=== PATIENT | female | born 1965 | race Hispanic/Latino ===

== ENCOUNTER 2017-07-18 14:51 | Inpatient (IN) | payer MEDICAID ==
[2017-07-18] MEDS ORDERED: Oxycodone/Acetaminophen 5/325 mg Tab PO STA (16:17)
[2017-07-18] MEDS ORDERED: Oxycodone/Acetaminophen 5/325 mg Tab ONE (16:31)
--- NOTE | 2017-07-18 16:47 | C.PDOC ---
History Of Present Illness 51 y/o female presents to ED c/o chronic joint pain. Pt states she has history of cervical disc surgery due to rheumatoid arthritis. Pt has not followed up with chronic pain specialist yet. Notes taking occasional Motrin and Percocet that is not prescribed to her. Denies any other complaints. Time Seen by Provider: 07/18/17 15:21 Chief Complaint (Nursing): Pain, Chronic History Per: Patient History/Exam Limitations: no limitations Onset/Duration Of Symptoms: Days Current Symptoms Are (Timing): Still Present Recent travel outside of the [place]: No Additional History Per: Patient Past Medical History Reviewed: Historical Data, Nursing Documentation, Vital Signs - Medical History PMH: Arthritis Family History: States: Unknown Family Hx - Social History Hx Alcohol Use: No Hx Substance Use: No - Immunization History Hx Tetanus Toxoid Vaccination: No Hx Influenza Vaccination: No Hx Pneumococcal Vaccination: No Review Of Systems Except As Marked, All Systems Reviewed And Found Negative. Constitutional: Positive for: Other (chronic joint pain). Negative for: Fever, Chills Cardiovascular: Negative for: Chest Pain, Palpitations Respiratory: Negative for: Shortness of Breath Gastrointestinal: Negative for: Nausea, Vomiting, Abdominal Pain Physical Exam - Physical Exam Appears: Non-toxic, No Acute Distress, Other (central obesity) Skin: Normal Color, Warm, Dry Head: Atraumatic, Normacephalic Eye(s): bilateral: Normal Inspection Oral Mucosa: Moist Cardiovascular: Rhythm Regular, No Murmur Respiratory: Normal Breath Sounds, No Rales, No Rhonchi, No Wheezing Extremity: No Normal ROM (painful ROM to knees without significant effusion), Capillary Refill (<2 secs.), No Deformity, Other (upper and lower extremity wasting) Neurological/Psych: Oriented x3, Normal Speech, Normal Motor, Normal Sensation ED Course And Treatment - Laboratory Results Result Diagrams: 07/18/17 17:32 07/18/17 17:32 Lab Interpretation: Normal Progress Note: percocet 1 po Reevaluation Time: 18:44 Reassessment Condition: Improved - Physician Consult Information Outcome Of Conversation: 1899: d/w Dr. Diaz and Medicine eduard Feldman to admit med/ Surg Obs Medical Decision Making Medical Decision Making: decompensated arhtritis, gait apraxia, morbid obesity, chronic pain Disposition Doctor Will See Patient In The: Hospital Counseled Patient/Family Regarding: Studies Performed, Diagnosis - Disposition Disposition: HOSPITALIZED Disposition Time: 18:45 Condition: GOOD Forms: [facility] ([place]) - Clinical Impression Clinical Impression: Gait apraxia, Chronic pain, Morbid obesity - Scribe Statement The provider has reviewed the documentation as recorded by the Eddieibnenita Rivera All medical record entries made by the Eddieibe were at my direction and personally dictated by me. I have reviewed the chart and agree that the record accurately reflects my personal performance of the history, physical exam, medical decision making, and the department course for this patient. I have also personally directed, reviewed, and agree with the discharge instructions and disposition.
[2017-07-18 17:35] LABS: BASO # 0.1 K/uL (0.0-0.2); BASO % 0.9 % (0.0-2.0); EOS # 0.1 K/uL (0.0-0.7); EOS % 1.4 % (0.0-4.0); HEMATOCRIT 40.6 % (34.0-47.0); LYMPH # 1.4 K/uL (1.0-4.3); LYMPH % 18.8 % (20.0-40.0); MEAN CELL VOLUME 81.3 fL (81.0-99.0); MEAN CORPUSCULAR HEMOGLOBIN 26.8 pg (27.0-31.0); MEAN CORPUSCULAR HGB CONC 32.9 g/dL (33.0-37.0); MEAN PLATELET VOLUME 7.2 fL (7.2-11.7); MONO # 0.3 K/uL (0.0-0.8); MONO % 4.5 % (0.0-10.0); NRBC % 0.4 % (0.0-2.0); RED CELL DISTRIBUTION WIDTH 16.1 % (11.5-14.5); WHITE BLOOD COUNT 7.6 K/uL (4.8-10.8)
--- NOTE | 2017-07-18 17:46 | RAD ---
PROCEDURE: CHEST RADIOGRAPH, 1 VIEW HISTORY: SOB COMPARISON: None available. FINDINGS: Right subclavian central venous catheter terminates at the cavoatrial junction. LUNGS: The lungs are well inflated and clear. PLEURA: No pneumothorax or pleural fluid seen. CARDIOVASCULAR: Normal. OSSEOUS STRUCTURES: No significant abnormalities. VISUALIZED UPPER ABDOMEN: Normal. OTHER FINDINGS: None. IMPRESSION: No acute findings.
[2017-07-18 17:49] LABS: INR 1.1
[2017-07-18 18:03] LABS: ALB/GLOB RATIO 1.2 (1.0-2.1); ALKALINE PHOSPHATASE 69 U/L (38-126); ALT/SGPT 28 U/L (9-52); AST/SGOT 16 U/L (14-36); BILIRUBIN,TOTAL 0.8 mg/dL (0.2-1.3); BLOOD UREA NITROGEN 20 mg/dL (7-17); CALCIUM 8.7 mg/dl (8.6-10.4); CARBON DIOXIDE 27 mmol/L (22-30); CHLORIDE 102 mmol/L (98-107); GFR AFRICAN-AMERICAN > 60; GLUCOSE,RANDOM 88 mg/dL (65-105); POTASSIUM 3.6 mmol/L (3.6-5.2); SODIUM 133 mmol/L (132-148); TOTAL PROTEIN 6.8 g/dL (6.3-8.3)
[2017-07-18 18:53] LABS: URINE COLOR Yellow (YELLOW)
[2017-07-18 18:54] LABS: RBC URINE 1 /hpf (0-3); TRANSITIONAL EPITHIAL < 1 /hpf (0-3); URINE BACTERIA RARE (<OCC); URINE BILIRUBIN NEGATIVE (NEGATIVE); URINE BLOOD NEGATIVE (NEGATIVE); URINE GLUCOSE (UA) NORMAL (Normal); URINE HYALINE CAST 0-2 /lpf (0-2); URINE KETONE NEGATIVE (NEGATIVE); URINE LEUKOCYTE ESTERASE NEG Leu/uL (Negative); URINE PROTEIN NEGATIVE (NEGATIVE); URINE UROBILINOGEN NORMAL mg/dL (0.2-1.0); WBC URINE 3 /hpf (0-5)
--- NOTE | 2017-07-18 23:41 | CP.PCM.HP ---
History of Present Illness - History of Present Illness History of Present Illness: CC: Rheumatoid Arthritis Pain HPI: 51 year old female presented to ED with complaint of worsening chronic Rheumatoid Arthritis-related joint pain in shoulders and knees. Patient is bed- bound and has not been able to stand or walk for the past two months due to the pain, which she rates as a 10/10. The pain is constant and is localized to the joints, with no radiation. Patient used to see a pain management doctor until he no longer accepted her insurance about 2 years ago. This doctor would prescribe her Percocet and give her Cortisone shots, which she says helped her pain. The Ibuprofen she takes now for the pain is not as effective. Patient also complains of a rash for about 1 month present throughout her body, which she says is very itchy. No one else in the family has the rash. Patient complains of weakness, headache, constipation, knee swelling, and back pain. Patient denies fever, chills, chest pain, palpations, nausea, vomiting, diarrhea , hematochezia, leg pain, weight gain. PMH: Rheumatoid Arthritis, Brain Cancer 15 years ago, now in remission PSH: Surgery for Brain Cancer Family History: Father had CA, mother had CVA and lung cancer, sister has breast cancer Medications: Ibuprofen 800 mg BID Allergies: NKDA Social History: 35 pack year history, denies alcohol and drug use; lives at home with , who is her primary caregiver, and daughter Present on Admission - Present on Admission Any Indicators Present on Admission: No History of DVT/PE: No History of Uncontrolled Diabetes: No Urinary Catheter: No Decubitus Ulcer Present: No Review of Systems - EENT Eyes: absent: Change in Vision - Cardiovascular Cardiovascular: absent: Chest Pain, Dyspnea, Leg Edema, Palpitations - Respiratory Respiratory: absent: Cough, Dyspnea, Wheezing, Stridor, Chest Congestion - Gastrointestinal Gastrointestinal: Constipation. absent: Abdominal Pain, Diarrhea, Nausea, Vomiting - Genitourinary Genitourinary: absent: Difficulty Urinating - Musculoskeletal Musculoskeletal: Arthralgias, Joint Swelling, Limited Range of Motion, Stiffness - Integumentary Integumentary: Pruritus, Rash - Neurological Neurological: absent: Dizziness - Hematologic/Lymphatic Hematologic: absent: Easy Bleeding, Easy Bruising Past Patient History - Past Social History Smoking Status: Heavy Smoker > 10 Cigarettes Daily - MUSCULOSKELETAL/RHEUMATOLOGICAL Hx Arthritis: Yes - PSYCHIATRIC Hx Substance Use: No - SURGICAL HISTORY Hx Surgeries: Yes Other/Comment: brain surgery (tumor) - ANESTHESIA Hx Anesthesia: Yes Hx Anesthesia Reactions: No Hx Malignant Hyperthermia: No Meds Allergies/Adverse Reactions: Allergies Allergy/AdvReac Type Severity Reaction Status Date / Time No Known Allergies Allergy Unverified 01/14/13 09:29 Physical Exam - Constitutional Appears: Chronically Ill - Head Exam Head Exam: ATRAUMATIC, NORMAL INSPECTION, NORMOCEPHALIC - Eye Exam Eye Exam: EOMI, Normal appearance - ENT Exam ENT Exam: Mucous Membranes Dry - Respiratory Exam Respiratory Exam: Clear to Auscultation Bilateral, NORMAL BREATHING PATTERN. absent: Rales, Rhonchi, Wheezes, Respiratory Distress, Stridor - Cardiovascular Exam Cardiovascular Exam: REGULAR RHYTHM, +S1, +S2 - GI/Abdominal Exam GI & Abdominal Exam: Normal Bowel Sounds, Soft. absent: Tenderness - Extremities Exam Extremities exam: Negative for: pedal edema Additional comments: petechial rash on feet and exoriations on LE - Neurological Exam Neurological exam: Alert, Oriented x3 - Psychiatric Exam Psychiatric exam: Normal Affect, Normal Mood - Skin Skin Exam: Abrasion, Erythema, Petechiae, Rash, Warm Additional comments: petechiae on feet, excoriations and rash on LE and shoulders and arms fungal type rash on feet, under armpits, and in groin Results - Vital Signs Recent Vital Signs: Last Vital Signs Temp 97.9 F 07/18/17 20:59 Pulse 74 07/18/17 20:59 Resp 18 07/18/17 20:59 BP 107/72 07/18/17 20:59 Pulse Ox 98 07/18/17 20:59 - Labs Result Diagrams: 07/18/17 17:32 07/18/17 17:32 Labs: Laboratory Results - last 24 hr 07/18/17 07/18/17 07/18/17 16:55 17:32 17:32 WBC 7.6 RBC 4.99 Hgb 13.4 Hct 40.6 MCV 81.3 MCH 26.8 L MCHC 32.9 L RDW 16.1 H Plt Count 265 MPV 7.2 Neut % (Auto) 74.4 Lymph % (Auto) 18.8 L Armstrong % (Auto) 4.5 Eos % (Auto) 1.4 Baso % (Auto) 0.9 Neut # 5.7 Lymph # 1.4 Armstrong # 0.3 Eos # 0.1 Baso # 0.1 PT 12.6 H INR 1.1 APTT 33 Sodium Potassium Chloride Carbon Dioxide Anion Gap BUN Creatinine Est GFR ( Amer) Est GFR (Non-Af Amer) Random Glucose Calcium Total Bilirubin AST ALT Alkaline Phosphatase NT-Pro-B Natriuret Pep Total Protein Albumin Globulin Albumin/Globulin Ratio Urine Color Yellow Urine Clarity Clear Urine pH 5.0 Ur Specific [place] 1.029 Urine Protein Negative Urine Glucose (UA) Normal Urine Ketones Negative Urine Blood Negative Urine Nitrate Negative Urine Bilirubin Negative Urine Urobilinogen Normal Ur Leukocyte Esterase Neg Urine WBC (Auto) 3 Urine RBC (Auto) 1 Ur Squamous Epith Cells 3 Ur Transition Epith Cell < 1 Urine Bacteria Rare Hyaline Casts 0-2 Urine HCG, Qual Negative Urine Opiates Screen Urine Methadone Screen Ur Barbiturates Screen Ur Phencyclidine Scrn Ur Amphetamines Screen U Benzodiazepines Scrn U Oth Cocaine Metabols U Cannabinoids Screen 07/18/17 07/18/17 17:32 18:35 WBC RBC Hgb Hct MCV MCH MCHC RDW Plt Count MPV Neut % (Auto) Lymph % (Auto) Armstrong % (Auto) Eos % (Auto) Baso % (Auto) Neut # Lymph # Armstrong # Eos # Baso # PT INR APTT Sodium 133 Potassium 3.6 Chloride 102 Carbon Dioxide 27 Anion Gap 8 L BUN 20 H Creatinine 0.6 L Est GFR ( Amer) > 60 Est GFR (Non-Af Amer) > 60 Random Glucose 88 Calcium 8.7 Total Bilirubin 0.8 AST 16 ALT 28 Alkaline Phosphatase 69 NT-Pro-B Natriuret Pep 129 Total Protein 6.8 Albumin 3.8 Globulin 3.1 Albumin/Globulin Ratio 1.2 Urine Color Urine Clarity Urine pH Ur Specific [place] Urine Protein Urine Glucose (UA) Urine Ketones Urine Blood Urine Nitrate Urine Bilirubin Urine Urobilinogen Ur Leukocyte Esterase Urine WBC (Auto) Urine RBC (Auto) Ur Squamous Epith Cells Ur Transition Epith Cell Urine Bacteria Hyaline Casts Urine HCG, Qual Urine Opiates Screen Positive H Urine Methadone Screen Negative Ur Barbiturates Screen Negative Ur Phencyclidine Scrn Negative Ur Amphetamines Screen Negative U Benzodiazepines Scrn Negative U Oth Cocaine Metabols Negative U Cannabinoids Screen Positive H Assessment & Plan - Assessment and Plan (Free Text) Assessment: Rheumatoid Arthritis Toradol 10mg IVP q8h SoluMedrol 125mg one dose Fungal Rash Diflucan 150mg po daily Prophylaxis DVT: SCDs GI: Pepcid 20mg daily
[2017-07-19 04:22] LABS: BASO % 0.3 % (0.0-2.0); EOS % 0.4 % (0.0-4.0); HEMATOCRIT 41.3 % (34.0-47.0); LYMPH # 0.8 K/uL (1.0-4.3); LYMPH % 13.7 % (20.0-40.0); MEAN CELL VOLUME 81.5 fL (81.0-99.0); MEAN CORPUSCULAR HGB CONC 33.1 g/dL (33.0-37.0); MEAN PLATELET VOLUME 7.3 fL (7.2-11.7); MONO # 0.1 K/uL (0.0-0.8); MONO % 1.7 % (0.0-10.0); NRBC % 0.1 % (0.0-2.0); RED CELL DISTRIBUTION WIDTH 16.1 % (11.5-14.5); WHITE BLOOD COUNT 5.7 K/uL (4.8-10.8)
[2017-07-19 04:53] LABS: ALB/GLOB RATIO 1.2 (1.0-2.1); ALKALINE PHOSPHATASE 69 U/L (38-126); ALT/SGPT 22 U/L (9-52); AST/SGOT 9 U/L (14-36); BILIRUBIN,TOTAL 0.8 mg/dL (0.2-1.3); BLOOD UREA NITROGEN 21 mg/dL (7-17); CALCIUM 8.1 mg/dl (8.6-10.4); CARBON DIOXIDE 25 mmol/L (22-30); CHLORIDE 102 mmol/L (98-107); GFR AFRICAN-AMERICAN > 60; GLUCOSE,RANDOM 132 mg/dL (65-105); MAGNESIUM 1.9 mg/dL (1.6-2.3); PHOSPHOROUS 4.1 mg/dL (2.5-4.5); POTASSIUM 4.3 mmol/L (3.6-5.2); SODIUM 142 mmol/L (132-148); TOTAL PROTEIN 6.9 g/dL (6.3-8.3)
[2017-07-19] MEDS: Enoxaparin 40 mg Syringe SC SCH (11:13)
--- NOTE | 2017-07-19 14:53 | CP.PCM.PN ---
Subjective - Date & Time of Evaluation Date of Evaluation: 07/19/17 Time of Evaluation: 09:30 - Subjective Subjective: Medicine Note ( PGY1)-----> Dr. Porter's service Patient was seen and examined at bedside in the ED. Patient states that she has been moderately immobile with sever pain in her joints. Patient was last seen by pain management two year ago and unable to go follow up with physical therapy due to lose of insurance. Patient admits to 8/10 knee pain, joint pain and back pain but denies fever, chills, nausea, vomiting, chest pain, palpitations and SOB. Patient is tolerating diet. Objective - Vital Signs/Intake and Output Vital Signs (last 24 hours): Temp Pulse Resp BP Pulse Ox 98.8 F 90 20 143/63 97 07/19/17 06:46 07/19/17 13:45 07/19/17 13:45 07/19/17 13:45 07/19/17 13:45 - Medications Medications: Current Medications Enoxaparin Sodium (Lovenox) [address] [facility] Last Admin: 07/19/17 11:13 Dose: 40 mg Famotidine (Pepcid) [address] [facility] Last Admin: 07/19/17 11:09 Dose: 20 mg Fluconazole (Diflucan) [address] [facility] Last Admin: 07/19/17 11:09 Dose: 150 mg Ketorolac Tromethamine (Toradol) [address] [facility] Last Admin: 07/19/17 13:42 Dose: 10 mg - Labs Labs: 07/19/17 04:19 07/19/17 04:19 PT 12.6 SECONDS (9.7-12.2) H 07/18/17 17:32 INR 1.1 07/18/17 17:32 APTT 33 SECONDS (21-34) 07/18/17 17:32 - Constitutional Appears: No Acute Distress - Eye Exam Eye Exam: EOMI - ENT Exam ENT Exam: Mucous Membranes Moist - Respiratory Exam Respiratory Exam: Clear to Ausculation Bilateral, NORMAL BREATHING PATTERN - Cardiovascular Exam Cardiovascular Exam: REGULAR RHYTHM, +S1, +S2 - GI/Abdominal Exam GI & Abdominal Exam: Soft, Normal Bowel Sounds. absent: Tenderness - Extremities Exam Extremities Exam: absent: Pedal Edema Additional comments: Bilateral contraction at the knee level Diffuse scarring on the legs Bilateral LE stiffness and joint pain - Neurological Exam Neurological Exam: Alert, Awake, Oriented x3 - Psychiatric Exam Psychiatric exam: Normal Affect - Skin Skin Exam: Normal Color Assessment and Plan (1) Chronic pain Assessment & Plan: Secondary to severe chronic Rheumatoid Arthritis-related joint pain in shoulders and knees Management/Medication: * Toradol 10mg IV Q8H PRN Status: Acute (2) History of brain cancer Assessment & Plan: Remission Status: Acute (3) Fungal rash of trunk Assessment & Plan: Diflucan 150mg po daily Status: Acute (4) Prophylactic measure Assessment & Plan: DVT: SCDs GI: Pepcid 20mg daily PT and OT All plans and management discussed with Dr. porter Status: Acute
--- NOTE | 2017-07-19 21:49 | CARD ---
APPROVED REPORT EKG Measurement Heart [id number] <Conclusion> Normal sinus rhythm Septal infarct, age undetermined T wave abnormality, consider anterolateral ischemia Abnormal ECG
[2017-07-19] MEDS ORDERED: Tramadol 25 mg PO ONE (22:02)
[2017-07-20 08:19] LABS: BASO % 0.7 % (0.0-2.0); EOS % 0.1 % (0.0-4.0); HEMATOCRIT 37.2 % (34.0-47.0); LYMPH # 2.2 K/uL (1.0-4.3); LYMPH % 33.7 % (20.0-40.0); MEAN CELL VOLUME 82.1 fL (81.0-99.0); MEAN CORPUSCULAR HEMOGLOBIN 26.9 pg (27.0-31.0); MEAN CORPUSCULAR HGB CONC 32.8 g/dL (33.0-37.0); MEAN PLATELET VOLUME 7.7 fL (7.2-11.7); MONO # 0.4 K/uL (0.0-0.8); MONO % 6.8 % (0.0-10.0); NRBC % 0.3 % (0.0-2.0); WHITE BLOOD COUNT 6.6 K/uL (4.8-10.8)
[2017-07-20 08:25] LABS: ALB/GLOB RATIO 1.2 (1.0-2.1); ALKALINE PHOSPHATASE 53 U/L (38-126); ALT/SGPT 26 U/L (9-52); AST/SGOT 12 U/L (14-36); BILIRUBIN,TOTAL 0.7 mg/dL (0.2-1.3); BLOOD UREA NITROGEN 21 mg/dL (7-17); CALCIUM 8.3 mg/dl (8.6-10.4); CARBON DIOXIDE 29 mmol/L (22-30); CHLORIDE 106 mmol/L (98-107); GFR AFRICAN-AMERICAN > 60; GLUCOSE,RANDOM 117 mg/dL (65-105); MAGNESIUM 2.1 mg/dL (1.6-2.3); PHOSPHOROUS 3.2 mg/dL (2.5-4.5); POTASSIUM 3.7 mmol/L (3.6-5.2); SODIUM 141 mmol/L (132-148); TOTAL PROTEIN 6.4 g/dL (6.3-8.3)
[2017-07-20] MEDS: Enoxaparin 40 mg Syringe SC SCH (10:20)
--- NOTE | 2017-07-20 18:55 | CP.PCM.PN ---
Subjective - Date & Time of Evaluation Date of Evaluation: 07/20/17 Time of Evaluation: 07:40 - Subjective Subjective: Medicine Note ( PGY1)-----> Dr. Porter's service Patient was seen and examined at bedside. Patient's was at bedside. Patient states that she is doing well but with pain in knee joints and but denies fever, chills, nausea, vomiting, chest pain, palpitations and SOB. Patient is tolerating diet. Objective - Vital Signs/Intake and Output Vital Signs (last 24 hours): Temp Pulse Resp BP Pulse Ox 97.9 F 58 L 20 136/84 97 07/20/17 15:00 07/20/17 15:00 07/20/17 15:00 07/20/17 15:00 07/20/17 15:00 Intake and Output: 07/20/17 07/20/17 06:59 18:59 Intake Total 440 600 Balance 440 600 - Medications Medications: Current Medications Enoxaparin Sodium (Lovenox) 40 mg SC DAILY [facility] Last Admin: 07/20/17 10:20 Dose: 40 mg Famotidine (Pepcid) 20 mg PO DAILY [facility] Last Admin: 07/20/17 10:20 Dose: 20 mg Fluconazole (Diflucan) 150 mg PO DAILY [facility] Last Admin: 07/20/17 10:20 Dose: 150 mg Ketorolac Tromethamine (Toradol) 10 mg IVP Q8 [facility] Last Admin: 07/20/17 14:18 Dose: 10 mg - Labs Labs: 07/20/17 07:54 07/20/17 07:54 PT 12.6 SECONDS (9.7-12.2) H 07/18/17 17:32 INR 1.1 07/18/17 17:32 APTT 33 SECONDS (21-34) 07/18/17 17:32 Assessment and Plan (1) Chronic pain Assessment & Plan: Secondary to severe chronic Rheumatoid Arthritis-related joint pain in shoulders and knees Management/Medication: * Toradol 10mg IV Q8H PRN * PT/OT Status: Acute (2) History of brain cancer Assessment & Plan: Remission Status: Acute (3) Rash Assessment & Plan: trunk, right upper shoulder and bilateral UE AND LE * Vitamin A & D ointment Status: Acute (4) Prophylactic measure Assessment & Plan: DVT: SCDs GI: Pepcid 20mg daily PT and OT All plans and management discussed with Dr. porter Status: Acute
[2017-07-20] MEDS: Vitamins A & D Oint UD Foilpak TOP SCH (21:01)
[2017-07-21] MEDS: Vitamins A & D Oint UD Foilpak TOP SCH ×6 (01:22→21:27)
--- NOTE | 2017-07-21 06:44 | CP.PCM.PN ---
Subjective - Date & Time of Evaluation Date of Evaluation: 07/21/17 Time of Evaluation: 06:42 - Subjective Subjective: Progress note Patient seen and examined at bedside. No acute events overnight. Patient denies fever, chills, nausea, vomiting, abdominal pain. Patient admits to arthritic pain in knees. Objective - Vital Signs/Intake and Output Vital Signs (last 24 hours): Temp Pulse Resp BP Pulse Ox 97.8 F 62 20 135/83 96 07/21/17 00:23 07/21/17 00:23 07/21/17 00:23 07/21/17 00:23 07/21/17 00:23 Intake and Output: 07/20/17 07/21/17 18:59 06:59 Intake Total 600 Balance 600 - Medications Medications: Current Medications Enoxaparin Sodium (Lovenox) 40 mg SC DAILY [facility] Last Admin: 07/20/17 10:20 Dose: 40 mg Famotidine (Pepcid) 20 mg PO DAILY [facility] Last Admin: 07/20/17 10:20 Dose: 20 mg Ketorolac Tromethamine (Toradol) 10 mg IVP Q8 [facility] Last Admin: 07/21/17 06:25 Dose: 10 mg Vitamin A (Vitamin A & D Oint Ud Foilpak) 0.5 ea TOP Q4 [facility] Last Admin: 07/21/17 04:29 Dose: 0.5 ea - Labs Labs: 07/20/17 07:54 07/20/17 07:54 PT 12.6 SECONDS (9.7-12.2) H 07/18/17 17:32 INR 1.1 07/18/17 17:32 APTT 33 SECONDS (21-34) 07/18/17 17:32 - Constitutional Appears: Non-toxic - Head Exam Head Exam: NORMAL INSPECTION - Eye Exam Eye Exam: EOMI, Normal appearance - ENT Exam ENT Exam: Mucous Membranes Moist - Respiratory Exam Respiratory Exam: NORMAL BREATHING PATTERN. absent: Accessory Muscle Use, Respiratory Distress - Cardiovascular Exam Cardiovascular Exam: REGULAR RHYTHM, +S1, +S2 - Extremities Exam Additional comments: Bilateral contraction at Patient's knees. Diffuse scarring noted on the legs Bilateral LE stiffness and joint pain - Neurological Exam Neurological Exam: Alert, Awake - Psychiatric Exam Psychiatric exam: Normal Affect, Normal Mood - Skin Skin Exam: Dry, Intact Assessment and Plan - Assessment and Plan (Free Text) Assessment: (1) Chronic pain Assessment & Plan: Secondary to severe chronic Rheumatoid Arthritis-related joint pain in shoulders and knees Management/Medication: * Toradol 10mg IV Q8H PRN * PT/OT Status: Acute (2) History of brain cancer Assessment & Plan: Remission Status: Acute (3) Rash Assessment & Plan: trunk, right upper shoulder and bilateral UE AND LE * Vitamin A & D ointment Status: Acute (4) Prophylaxis Assessment & Plan: DVT: SCDs GI: Pepcid 20mg daily PT and OT All plans and management discussed with Dr. Diaz Status: Acute
[2017-07-21 07:48] LABS: BASO # 0.1 K/uL (0.0-0.2); BASO % 0.9 % (0.0-2.0); EOS # 0.1 K/uL (0.0-0.7); EOS % 1.1 % (0.0-4.0); HEMATOCRIT 38.1 % (34.0-47.0); LYMPH # 2.5 K/uL (1.0-4.3); LYMPH % 40.9 % (20.0-40.0); MEAN CELL VOLUME 81.4 fL (81.0-99.0); MEAN CORPUSCULAR HEMOGLOBIN 27.3 pg (27.0-31.0); MEAN CORPUSCULAR HGB CONC 33.5 g/dL (33.0-37.0); MEAN PLATELET VOLUME 7.8 fL (7.2-11.7); MONO # 0.4 K/uL (0.0-0.8); MONO % 5.9 % (0.0-10.0); NRBC % 0.1 % (0.0-2.0); WHITE BLOOD COUNT 6.1 K/uL (4.8-10.8)
[2017-07-21 08:12] LABS: ALB/GLOB RATIO 0.9 (1.0-2.1); ALKALINE PHOSPHATASE 60 U/L (38-126); ALT/SGPT 24 U/L (9-52); AST/SGOT 12 U/L (14-36); BILIRUBIN,TOTAL 0.3 mg/dL (0.2-1.3); BLOOD UREA NITROGEN 15 mg/dL (7-17); CALCIUM 8.1 mg/dl (8.6-10.4); CARBON DIOXIDE 30 mmol/L (22-30); CHLORIDE 105 mmol/L (98-107); GFR AFRICAN-AMERICAN > 60; GLUCOSE,RANDOM 103 mg/dL (65-105); MAGNESIUM 1.9 mg/dL (1.6-2.3); PHOSPHOROUS 3.6 mg/dL (2.5-4.5); POTASSIUM 3.4 mmol/L (3.6-5.2); SODIUM 141 mmol/L (132-148); TOTAL PROTEIN 6.9 g/dL (6.3-8.3)
[2017-07-21] MEDS: Enoxaparin 40 mg Syringe SC SCH (10:56)
[2017-07-21] MEDS ORDERED: Potassium Chloride 20 mEq ER Tab PO ONE (19:17)
[2017-07-22] MEDS: Vitamins A & D Oint UD Foilpak TOP SCH ×6 (00:07→20:00)
--- NOTE | 2017-07-22 06:27 | CP.PCM.PN ---
Subjective - Date & Time of Evaluation Date of Evaluation: 07/22/17 Time of Evaluation: 06:25 - Subjective Subjective: Progress Note for Dr. Diaz Patient seen and examined at bedside. Patient has pain, but no other complaints. Patient denies fever, chills, nausea, vomiting, abdominal pain. Objective - Vital Signs/Intake and Output Vital Signs (last 24 hours): Temp Pulse Resp BP Pulse Ox 98.1 F 58 L 16 108/73 98 07/22/17 00:00 07/22/17 00:00 07/22/17 00:00 07/22/17 00:00 07/22/17 00:00 - Medications Medications: Current Medications Enoxaparin Sodium (Lovenox) 40 mg SC DAILY [facility] Last Admin: 07/21/17 10:56 Dose: 40 mg Famotidine (Pepcid) 20 mg PO DAILY [facility] Last Admin: 07/21/17 10:58 Dose: 20 mg Ketorolac Tromethamine (Toradol) 10 mg IVP Q8 [facility] Last Admin: 07/22/17 05:05 Dose: 10 mg Prednisone (Prednisone Tab) 40 mg PO DAILY [facility] Vitamin A (Vitamin A & D Oint Ud Foilpak) 0.5 ea TOP Q4 [facility] Last Admin: 07/22/17 05:11 Dose: Not Given - Labs Labs: 07/21/17 07:24 07/21/17 07:24 PT 12.6 SECONDS (9.7-12.2) H 07/18/17 17:32 INR 1.1 07/18/17 17:32 APTT 33 SECONDS (21-34) 07/18/17 17:32 - Extremities Exam Additional comments: Bilateral contraction at Patient's knees. Diffuse scarring noted on the legs Bilateral LE stiffness and joint pain - Additional Findings Additional findings: - Constitutional Appears: Non-toxic - Head Exam Head Exam: NORMAL INSPECTION - Eye Exam Eye Exam: EOMI, Normal appearance - ENT Exam ENT Exam: Mucous Membranes Moist - Respiratory Exam Respiratory Exam: NORMAL BREATHING PATTERN. absent: Accessory Muscle Use, Respiratory Distress - Cardiovascular Exam Cardiovascular Exam: REGULAR RHYTHM, +S1, +S2 - Neurological Exam Neurological Exam: Alert, Awake - Psychiatric Exam Psychiatric exam: Normal Affect, Normal Mood - Skin Skin Exam: Dry, Intact Assessment and Plan - Assessment and Plan (Free Text) Assessment: (1) Chronic pain Assessment & Plan: Secondary to severe chronic Rheumatoid Arthritis-related joint pain in shoulders and knees Management/Medication: * Toradol 10mg IV Q8H PRN * PT/OT Status: Acute (2) History of brain cancer Assessment & Plan: Remission Status: Acute (3) Rash Assessment & Plan: trunk, right upper shoulder and bilateral UE AND LE * Vitamin A & D ointment Status: Acute (4) Prophylaxis Assessment & Plan: DVT: SCDs GI: Pepcid 20mg daily PT and OT All plans and management discussed with Dr. Diaz Status: Acute Cheyenne Garcia DO PGY1
[2017-07-22 08:26] LABS: BASO # 0.1 K/uL (0.0-0.2); BASO % 0.9 % (0.0-2.0); EOS # 0.1 K/uL (0.0-0.7); EOS % 1.4 % (0.0-4.0); HEMATOCRIT 38.8 % (34.0-47.0); LYMPH # 2.2 K/uL (1.0-4.3); LYMPH % 35.9 % (20.0-40.0); MEAN CELL VOLUME 81.3 fL (81.0-99.0); MEAN CORPUSCULAR HEMOGLOBIN 27.2 pg (27.0-31.0); MEAN CORPUSCULAR HGB CONC 33.5 g/dL (33.0-37.0); MEAN PLATELET VOLUME 7.3 fL (7.2-11.7); MONO # 0.3 K/uL (0.0-0.8); MONO % 5.2 % (0.0-10.0); NRBC % 0.1 % (0.0-2.0); RED CELL DISTRIBUTION WIDTH 16.5 % (11.5-14.5); WHITE BLOOD COUNT 6.1 K/uL (4.8-10.8)
[2017-07-22 09:10] LABS: ALB/GLOB RATIO 0.9 (1.0-2.1); ALKALINE PHOSPHATASE 64 U/L (38-126); ALT/SGPT 26 U/L (9-52); AST/SGOT 11 U/L (14-36); BILIRUBIN,TOTAL 0.4 mg/dL (0.2-1.3); BLOOD UREA NITROGEN 16 mg/dL (7-17); CALCIUM 8.2 mg/dl (8.6-10.4); CARBON DIOXIDE 29 mmol/L (22-30); CHLORIDE 105 mmol/L (98-107); GFR AFRICAN-AMERICAN > 60; GLUCOSE,RANDOM 99 mg/dL (65-105); PHOSPHOROUS 3.9 mg/dL (2.5-4.5); POTASSIUM 4.4 mmol/L (3.6-5.2); SODIUM 140 mmol/L (132-148); TOTAL PROTEIN 6.7 g/dL (6.3-8.3)
[2017-07-22] MEDS: Enoxaparin 40 mg Syringe SC SCH (11:00)
--- NOTE | 2017-07-22 11:19 | RAD ---
PROCEDURE: Bilateral Knee Radiographs. HISTORY: chronic arthritis COMPARISON: Bilateral knees 10/18/2012. FINDINGS: BONES: No acute fracture or destructive bony lesion identified bilaterally. JOINTS: Late stage osteoarthritis is manifest by joint space narrowing, cortical sclerosis and limited osteophyte formation at the medial lateral femorotibial compartments as well as the patellofemoral articulation, worsened in the interval. SOFT TISSUES: Right Knee: Normal. Left Knee: Normal. JOINT EFFUSION: Right Knee: None. Left Knee: None. OTHER FINDINGS: None. IMPRESSION: Late stage bilateral osteoarthritis, tricompartmental.
--- NOTE | 2017-07-22 11:21 | RAD ---
PROCEDURE: Radiographs of both shoulders HISTORY: chronic arthritis COMPARISON: No prior. FINDINGS: BONES: No acute fracture or destructive bony lesion identified bilaterally. JOINTS: Moderate severe degenerative change in the bilateral acromioclavicular joints and are mild at the bilateral leak that glenohumeral joints. No subluxation or dislocation. SOFT TISSUES: Right shoulder: Grossly unremarkable. Right shoulder: Grossly unremarkable. OTHER FINDINGS: None. IMPRESSION: Moderate degenerative joint disease bilateral shoulders without fracture or dislocation.
[2017-07-23] MEDS: Vitamins A & D Oint UD Foilpak TOP SCH ×5 (06:14→20:55)
[2017-07-23 07:58] LABS: BASO % 0.5 % (0.0-2.0); EOS % 0.1 % (0.0-4.0); HEMATOCRIT 39.6 % (34.0-47.0); LYMPH % 29.5 % (20.0-40.0); MEAN CELL VOLUME 81.5 fL (81.0-99.0); MEAN CORPUSCULAR HEMOGLOBIN 26.9 pg (27.0-31.0); MEAN CORPUSCULAR HGB CONC 33.1 g/dL (33.0-37.0); MEAN PLATELET VOLUME 7.6 fL (7.2-11.7); MONO # 0.4 K/uL (0.0-0.8); MONO % 6.2 % (0.0-10.0); WHITE BLOOD COUNT 6.6 K/uL (4.8-10.8)
--- NOTE | 2017-07-23 08:34 | CP.PCM.CON ---
History of Present Illness - History of Present Illness History of Present Illness: Orthopedic consultation Dr. Escoto 51F with rheumatoid arthritis with B knee and shoulder involvement complains of severe knee pain and shoulder pain. She has been unable to ambulate for months, she is unsure exactly how long. Last visit to pain mgmt doctor was 2 years ago, when she was getting cortisone injections and PT. She does not have wheelchair. She is relatively bed bound. Patient says she came to ER to get steroid injections so she can walk again. Review of Systems - Review of Systems All systems: reviewed and no additional remarkable complaints except Past Patient History - Past Medical History & Family History Past Medical History?: Yes Past Family History: Reviewed and not pertinent - Past Social History Smoking Status: Heavy Smoker > 10 Cigarettes Daily - CARDIAC Hx Cardiac Disorders: No - PULMONARY Hx Respiratory Disorders: No - NEUROLOGICAL Hx Neurological Disorder: No - HEENT Hx HEENT Problems: No - RENAL Hx Chronic Kidney Disease: No - ENDOCRINE/METABOLIC Hx Endocrine Disorders: No - HEMATOLOGICAL/ONCOLOGICAL Hx Blood Disorders: No - INTEGUMENTARY Hx Dermatological Problems: No - MUSCULOSKELETAL/RHEUMATOLOGICAL Hx Arthritis: Yes (B/L SH; B/L KNEE) - GASTROINTESTINAL Hx Gastrointestinal Disorders: No - GENITOURINARY/GYNECOLOGICAL Hx Genitourinary Disorders: No - PSYCHIATRIC Hx Psychophysiologic Disorder: No Hx Substance Use: No - SURGICAL HISTORY Hx Surgeries: Yes Other/Comment: brain surgery (tumor) 17yrs ago - ANESTHESIA Hx Anesthesia: Yes Hx Anesthesia Reactions: No Hx Malignant Hyperthermia: No Meds Allergies/Adverse Reactions: Allergies Allergy/AdvReac Type Severity Reaction Status Date / Time No Known Allergies Allergy Unverified 01/14/13 09:29 - Medications Medications: Current Medications Enoxaparin Sodium (Lovenox) 40 mg SC DAILY [facility] Last Admin: 07/22/17 11:00 Dose: 40 mg Famotidine (Pepcid) 20 mg PO DAILY [facility] Last Admin: 07/22/17 11:00 Dose: 20 mg Ketorolac Tromethamine (Toradol) 10 mg IVP Q6 [facility] Last Admin: 07/23/17 06:14 Dose: Not Given Prednisone (Prednisone Tab) 40 mg PO DAILY [facility] Last Admin: 07/22/17 11:00 Dose: 40 mg Vitamin A (Vitamin A & D Oint Ud Foilpak) 0.5 ea TOP Q4 [facility] Last Admin: 07/23/17 08:09 Dose: 0.5 ea Physical Exam - Constitutional Appears: Well, No Acute Distress Additional comments: lying in bed, pillows under knees due to contractions - Head Exam Head Exam: ATRAUMATIC - Respiratory Exam Respiratory Exam: NORMAL BREATHING PATTERN - Cardiovascular Exam Additional comments: +radial pulses - Expanded Upper Extremities Exam Left Shoulder exam: tenderness (generalized tenderness, AROM limited to 90 degrees, but passively to approx 120, complains of pain) Neuro motor exam: finger 2-5 abduction intact, thumb abduction, thumb IP flexion intact, thumb opposition intact, wrist extension intact Neurosensory exam: median nerve intact, radial nerve intact, ulnar nerve intact Vascular exam: radial pulse Right Shoulder exam: tenderness (generalized tenderness, AROM limited to 90 degrees, but passively to approx 120, complains of pain) Neuro motor exam: finger 2-5 abduction intact, thumb abduction, thumb IP flexion intact, thumb opposition intact, wrist extension intact Neurosensory exam: median nerve intact, radial nerve intact, ulnar nerve intact Vascular exam: radial pulse - Expanded Lower Extremities Exam Left Knee exam: crepitus, tenderness (BLE contractures. ROM of 70-100 degrees approx , calves soft NT neg homans +ROM ankle/toes, sensation itnact) - Neurological Exam Neurological exam: Alert, Oriented x3 - Psychiatric Exam Psychiatric exam: Normal Affect, Normal Mood - Skin Skin Exam: Dry, Intact, Normal Color, Warm Results - Vital Signs Recent Vital Signs: Last Vital Signs Temp 97.7 F 07/23/17 08:11 Pulse 62 07/23/17 08:11 Resp 20 07/23/17 08:11 BP 131/84 07/23/17 08:11 Pulse Ox 97 07/23/17 08:11 - Labs Result Diagrams: 07/23/17 07:46 07/23/17 07:46 Labs: Laboratory Results - last 24 hr 07/22/17 07/22/17 07/22/17 07:00 08:09 08:09 WBC 6.1 RBC 4.77 Hgb 13.0 Hct 38.8 MCV 81.3 MCH 27.2 MCHC 33.5 RDW 16.5 H Plt Count 237 MPV 7.3 Neut % (Auto) 56.6 Lymph % (Auto) 35.9 Stephenson % (Auto) 5.2 Eos % (Auto) 1.4 Baso % (Auto) 0.9 Neut # 3.5 Lymph # 2.2 Stephenson # 0.3 Eos # 0.1 Baso # 0.1 ESR 26 H Sodium 140 Potassium 4.4 Chloride 105 Carbon Dioxide 29 Anion Gap 11 BUN 16 Creatinine 0.5 L Est GFR ( Amer) > 60 Est GFR (Non-Af Amer) > 60 Random Glucose 99 Calcium 8.2 L Phosphorus 3.9 Magnesium 2.0 Total Bilirubin 0.4 AST 11 L ALT 26 Alkaline Phosphatase 64 C-React Prot High Sens 10.74 H Total Protein 6.7 Albumin 3.3 L Globulin 3.4 Albumin/Globulin Ratio 0.9 L 07/23/17 07:46 WBC 6.6 RBC 4.86 Hgb 13.1 Hct 39.6 MCV 81.5 MCH 26.9 L MCHC 33.1 RDW 16.0 H Plt Count 269 MPV 7.6 Neut % (Auto) 63.7 Lymph % (Auto) 29.5 Stephenson % (Auto) 6.2 Eos % (Auto) 0.1 Baso % (Auto) 0.5 Neut # 4.2 Lymph # 2.0 Stephenson # 0.4 Eos # 0.0 Baso # 0.0 ESR Sodium Potassium Chloride Carbon Dioxide Anion Gap BUN Creatinine Est GFR ( Amer) Est GFR (Non-Af Amer) Random Glucose Calcium Phosphorus Magnesium Total Bilirubin AST ALT Alkaline Phosphatase C-React Prot High Sens Total Protein Albumin Globulin Albumin/Globulin Ratio - Impressions Impression: Patient Name / ID : JUAN PABLO LINDSAY / [id number] Exam Date : 07/22/2017 08:16:19 ( Approved ) Study Comment : Sex / Age : F / 51Y Creator : Ilan Arreaga MD Dictator : Ilan Arreaga MD Director Of Strategic Sourcing : [employer] : Ilan Arreaga MD Approver2 : Report Date : 07/22/2017 11:15:15 My Comment : PROCEDURE: Radiographs of both shoulders HISTORY: chronic arthritis COMPARISON: No prior. FINDINGS: BONES: No acute fracture or destructive bony lesion identified bilaterally. JOINTS: Moderate severe degenerative change in the bilateral acromioclavicular joints and are mild at the bilateral leak that glenohumeral joints. No subluxation or dislocation. SOFT TISSUES: Right shoulder: Grossly unremarkable. Right shoulder: Grossly unremarkable. OTHER FINDINGS: None. IMPRESSION: Moderate degenerative joint disease bilateral shoulders without fracture or dislocation. Patient Name / ID : JUAN PABLO LINDSAY / [id number] Exam Date : 07/22/2017 07:59:27 ( Approved ) Study Comment : Sex / Age : F / 51Y Creator : Ilan Arreaga MD Dictator : Ilan Arreaga MD Director Of Strategic Sourcing : [employer] : Ilan Arreaga MD Approver2 : Report Date : 07/22/2017 11:13:18 My Comment : PROCEDURE: Bilateral Knee Radiographs. HISTORY: chronic arthritis COMPARISON: Bilateral knees 10/18/2012. FINDINGS: BONES: No acute fracture or destructive bony lesion identified bilaterally. JOINTS: Late stage osteoarthritis is manifest by joint space narrowing, cortical sclerosis and limited osteophyte formation at the medial lateral femorotibial compartments as well as the patellofemoral articulation, worsened in the interval. SOFT TISSUES: Right Knee: Normal. Left Knee: Normal. JOINT EFFUSION: Right Knee: None. Left Knee: None. OTHER FINDINGS: None. IMPRESSION: Late stage bilateral osteoarthritis, tricompartmental. Assessment & Plan (1) Rheumatoid arthritis Assessment and Plan: Patient will need extensive aggressive physical therapy to maximize ROM/ strength and functional abliity of BUE and BLE advised patient that steroid injection will not reverse her knee contractures, and that walking again is a goal but can not be guaranteed with this level of contractures and disability agreessive PT /OT for ROM and strengthening, wheelchair transfers recommend rehab placement recommend rheumatology consult, recommend pain management consult patient on PO steroids at this time d/w Dr. Esocto Status: Acute (2) Bilateral knee contractures Status: Acute (3) Knee pain, bilateral Status: Acute (4) Shoulder pain, bilateral Status: Acute (5) DJD of left shoulder Status: Acute (6) DJD of right shoulder Status: Acute (7) Degenerative joint disease of knee, right Status: Acute (8) Degenerative joint disease of knee, left Status: Acute Review of Systems - Review of Systems Constitutional: Negative for: Fever, HPI, A, Chills, Sweats, DS, Weakness, FA, Malaise, Other, FF, LEAL, IA, L, NS, SN, D[employer]ITAL [employer]OR, WG, WL, UN Respiratory: Negative for: Cough, Dry, Shortness of Breath, Hemoptysis, SOB with Exertion, Pleuritic Pain, Sputum, Wheezing Musculoskeletal: Positive for: Shoulder Pain, Leg Pain Neurological: Negative for: Weakness, Numbness, Incoordination, Change in Speech , Confusion, Seizures, Other - Medications/Allergies Allergies/Adverse Reactions: Allergies Allergy/AdvReac Type Severity Reaction Status Date / Time No Known Allergies Allergy Unverified 01/14/13 09:29 Medications: Current Medications Enoxaparin Sodium (Lovenox) 40 mg SC DAILY [facility] Last Admin: 07/23/17 09:16 Dose: 40 mg Famotidine (Pepcid) 20 mg PO DAILY [facility] Last Admin: 07/23/17 09:16 Dose: 20 mg Ketorolac Tromethamine (Toradol) 15 mg IVP Q6 PRN PRN Reason: Pain, moderate (4-7) Ketorolac Tromethamine (Toradol) 30 mg IVP Q6H PRN PRN Reason: Pain, severe (8-10) Last Admin: 07/23/17 11:40 Dose: 30 mg Prednisone (Prednisone Tab) 40 mg PO DAILY [facility] Last Admin: 07/23/17 09:16 Dose: 40 mg Vitamin A (Vitamin A & D Oint Ud Foilpak) 0.5 ea TOP Q4 [facility] Last Admin: 07/23/17 11:41 Dose: 0.5 ea
[2017-07-23 08:49] LABS: ALKALINE PHOSPHATASE 63 U/L (38-126); ALT/SGPT 23 U/L (9-52); AST/SGOT 12 U/L (14-36); BILIRUBIN,TOTAL 0.4 mg/dL (0.2-1.3); BLOOD UREA NITROGEN 19 mg/dL (7-17); CALCIUM 8.3 mg/dl (8.6-10.4); CARBON DIOXIDE 26 mmol/L (22-30); CHLORIDE 105 mmol/L (98-107); GFR AFRICAN-AMERICAN > 60; GLUCOSE,RANDOM 126 mg/dL (65-105); MAGNESIUM 2.1 mg/dL (1.6-2.3); PHOSPHOROUS 3.3 mg/dL (2.5-4.5); POTASSIUM 3.9 mmol/L (3.6-5.2); SODIUM 138 mmol/L (132-148); TOTAL PROTEIN 6.1 g/dL (6.3-8.3)
[2017-07-23 08:54] LABS: ALB/GLOB RATIO 1.2 (1.0-2.1)
[2017-07-23] MEDS: Enoxaparin 40 mg Syringe SC SCH (09:16)
--- NOTE | 2017-07-23 15:04 | CP.PCM.PN ---
Subjective - Date & Time of Evaluation Date of Evaluation: 07/23/17 Time of Evaluation: 07:35 - Subjective Subjective: Medicine Note ( PGY1)-----> Dr. Porter's service Patient was seen and examined at bedside. Patient's daughter was at bedside. Patient states that she is doing well but with pain in knee joints and shoulder. Patient denies fever, chills, nausea, vomiting, chest pain, palpitations and SOB. Patient is tolerating diet. Objective - Vital Signs/Intake and Output Vital Signs (last 24 hours): Temp Pulse Resp BP Pulse Ox 97.7 F 62 20 131/84 97 07/23/17 08:11 07/23/17 08:11 07/23/17 08:11 07/23/17 08:11 07/23/17 08:11 - Medications Medications: Current Medications Enoxaparin Sodium (Lovenox) 40 mg SC DAILY [facility] Last Admin: 07/23/17 09:16 Dose: 40 mg Famotidine (Pepcid) 20 mg PO DAILY [facility] Last Admin: 07/23/17 09:16 Dose: 20 mg Ketorolac Tromethamine (Toradol) 15 mg IVP Q6 PRN PRN Reason: Pain, moderate (4-7) Ketorolac Tromethamine (Toradol) 30 mg IVP Q6H PRN PRN Reason: Pain, severe (8-10) Last Admin: 07/23/17 11:40 Dose: 30 mg Prednisone (Prednisone Tab) 40 mg PO DAILY [facility] Last Admin: 07/23/17 09:16 Dose: 40 mg Vitamin A (Vitamin A & D Oint Ud Foilpak) 0.5 ea TOP Q4 [facility] Last Admin: 07/23/17 11:41 Dose: 0.5 ea - Labs Labs: 07/23/17 07:46 07/23/17 07:46 PT 12.6 SECONDS (9.7-12.2) H 07/18/17 17:32 INR 1.1 07/18/17 17:32 APTT 33 SECONDS (21-34) 07/18/17 17:32 - Constitutional Appears: No Acute Distress - Head Exam Head Exam: ATRAUMATIC - Eye Exam Eye Exam: EOMI - ENT Exam ENT Exam: Mucous Membranes Moist - Respiratory Exam Respiratory Exam: Clear to Ausculation Bilateral, NORMAL BREATHING PATTERN - Cardiovascular Exam Cardiovascular Exam: REGULAR RHYTHM, +S1, +S2 - GI/Abdominal Exam GI & Abdominal Exam: Soft, Normal Bowel Sounds - Extremities Exam Extremities Exam: Normal Inspection, Pedal Edema Additional comments: Bilateral contraction at the knee joints - Neurological Exam Neurological Exam: Alert, Awake, Oriented x3 - Psychiatric Exam Psychiatric exam: Normal Affect - Skin Skin Exam: Normal Color, Rash Assessment and Plan (1) Chronic pain Assessment & Plan: Secondary to severe chronic Rheumatoid Arthritis-related joint pain in shoulders and knees Imagin. Shoulder X-ray: Moderate degenerative joint disease bilateral shoulders without fracture or dislocation 2. Knee X-ray: Late stae bilateral osteoarthritis. Tricompartmental Management/Medication: * Toradol 15mg IV Q6H PRN * Toradol 30mg IV Q6H PRN * PT/OT Status: Acute (2) Degenerative joint disease Assessment & Plan: Bilateral knee and shoulder Orthopedics consult, Dr. Escoto * As per recommendation: agreessive PT /OT for ROM and strengthening, wheelchair transfers recommend rehab placement, recommend rheumatology consult, recommend pain management consult Imagin. Shoulder X-ray: Moderate degenerative joint disease bilateral shoulders without fracture or dislocation 2. Knee X-ray: Late stae bilateral osteoarthritis. Tricompartmental Management: * Aggressive PT/OT * [facility] placement Status: Acute (3) History of brain cancer Assessment & Plan: Remission Status: Acute (4) Rash Assessment & Plan: Resolving trunk, right upper shoulder and bilateral UE AND LE * Vitamin A & D ointment Status: Acute (5) Prophylactic measure Assessment & Plan: DVT: SCDs, Lovenox 40mg SC daily GI: Pepcid 20mg daily PT and OT Disposition: Working with skilled nursing case manager and mental health social worker on subacute rehab placement All plans and management discussed with Dr. porter Status: Acute
[2017-07-24] MEDS: Vitamins A & D Oint UD Foilpak TOP SCH ×6 (00:15→20:00)
[2017-07-24 07:01] LABS: BASO # 0.1 K/uL (0.0-0.2); BASO % 0.6 % (0.0-2.0); EOS % 0.1 % (0.0-4.0); HEMATOCRIT 40.6 % (34.0-47.0); LYMPH # 2.8 K/uL (1.0-4.3); LYMPH % 34.6 % (20.0-40.0); MEAN CELL VOLUME 82.1 fL (81.0-99.0); MEAN CORPUSCULAR HEMOGLOBIN 26.9 pg (27.0-31.0); MEAN CORPUSCULAR HGB CONC 32.8 g/dL (33.0-37.0); MEAN PLATELET VOLUME 7.4 fL (7.2-11.7); MONO # 0.5 K/uL (0.0-0.8); MONO % 6.1 % (0.0-10.0); NRBC % 0.1 % (0.0-2.0); RED CELL DISTRIBUTION WIDTH 16.5 % (11.5-14.5); WHITE BLOOD COUNT 8.2 K/uL (4.8-10.8)
[2017-07-24 07:50] LABS: ALB/GLOB RATIO 1.4 (1.0-2.1); ALKALINE PHOSPHATASE 68 U/L (38-126); ALT/SGPT 23 U/L (9-52); AST/SGOT 11 U/L (14-36); BILIRUBIN,TOTAL 0.3 mg/dL (0.2-1.3); BLOOD UREA NITROGEN 29 mg/dL (7-17); CALCIUM 8.5 mg/dl (8.6-10.4); CARBON DIOXIDE 29 mmol/L (22-30); CHLORIDE 106 mmol/L (98-107); GFR AFRICAN-AMERICAN > 60; GLUCOSE,RANDOM 117 mg/dL (65-105); MAGNESIUM 2.1 mg/dL (1.6-2.3); PHOSPHOROUS 3.3 mg/dL (2.5-4.5); POTASSIUM 3.9 mmol/L (3.6-5.2); SODIUM 142 mmol/L (132-148); TOTAL PROTEIN 6.1 g/dL (6.3-8.3)
[2017-07-24] MEDS: Enoxaparin 40 mg Syringe SC SCH (10:17)
--- NOTE | 2017-07-24 12:07 | CP.PCM.PN ---
Subjective - Date & Time of Evaluation Date of Evaluation: 07/24/17 Time of Evaluation: 13:09 - Subjective Subjective: Patient still complaining of knee and shoulder pain. Objective - Vital Signs/Intake and Output Vital Signs (last 24 hours): Temp Pulse Resp BP Pulse Ox 98.2 F 62 21 129/84 97 07/24/17 08:28 07/24/17 08:28 07/24/17 08:28 07/24/17 08:28 07/24/17 08:28 Intake and Output: 07/24/17 07/24/17 06:59 18:59 Intake Total 450 Balance 450 - Medications Medications: Current Medications Enoxaparin Sodium (Lovenox) 40 mg SC DAILY [facility] Last Admin: 07/24/17 10:17 Dose: 40 mg Famotidine (Pepcid) 20 mg PO DAILY [facility] Last Admin: 07/24/17 10:17 Dose: 20 mg Ketorolac Tromethamine (Toradol) 15 mg IVP Q6 PRN PRN Reason: Pain, moderate (4-7) Ketorolac Tromethamine (Toradol) 30 mg IVP Q6H PRN PRN Reason: Pain, severe (8-10) Last Admin: 07/24/17 10:37 Dose: 30 mg Prednisone (Prednisone Tab) 40 mg PO DAILY [facility] Last Admin: 07/24/17 10:17 Dose: 40 mg Vitamin A (Vitamin A & D Oint Ud Foilpak) 0.5 ea TOP Q4 [facility] Last Admin: 07/24/17 09:00 Dose: 0.5 ea - Labs Labs: 07/24/17 06:55 07/24/17 06:55 PT 12.6 SECONDS (9.7-12.2) H 07/18/17 17:32 INR 1.1 07/18/17 17:32 APTT 33 SECONDS (21-34) 07/18/17 17:32 - Constitutional Appears: Well, No Acute Distress - Head Exam Head Exam: ATRAUMATIC - Respiratory Exam Respiratory Exam: NORMAL BREATHING PATTERN - Extremities Exam Additional comments: No effusion, no erythema calves soft NT neg homans Shoulder ROM still painful, +radial pulses - Neurological Exam Neurological Exam: Alert, Awake, Oriented x3 Neuro motor strength exam: Left Lower Extremity: 5 (B knee contractures), Right Lower Extremity: 5 (+DF/PF toes flex/ext) - Psychiatric Exam Psychiatric exam: Normal Affect, Normal Mood - Skin Skin Exam: Dry, Intact, Normal Color, Warm Assessment and Plan (1) Rheumatoid arthritis Assessment & Plan: case reviewed by Dr. Escoto severe DJD of bilateral knees, osteopenia explained to patient she may benefit from total joint replacement in future, but at this time she needs to maximize ROM and strengthening and function with PT/OT prior to considering any surgical intervention Advised patient that her immobility has caused significant contractures in her knees and she will need extensive rehabilitation to maximize her function conservatively f/u Dr. Escoto in office prn recommend rhematology consultation Status: Acute (2) Bilateral knee contractures Status: Acute (3) Knee pain, bilateral Status: Acute (4) Shoulder pain, bilateral Status: Acute (5) DJD of left shoulder Status: Acute (6) DJD of right shoulder Status: Acute (7) Degenerative joint disease of knee, right Status: Acute (8) Degenerative joint disease of knee, left Status: Acute
[2017-07-24 16:57] VITALS: RESP 20
--- NOTE | 2017-07-24 17:29 | CP.PCM.PN ---
Subjective - Date & Time of Evaluation Date of Evaluation: 07/24/17 Time of Evaluation: 07:35 - Subjective Subjective: Medicine Note ( PGY1)-----> Dr. Porter's service Patient was seen and examined at bedside. Patient states that she is doing well but with pain in knee joints and shoulder. Patient denies fever, chills, nausea , vomiting, chest pain, palpitations and SOB. Patient is tolerating diet. Patient is aware that she is awaiting [facility] placement. Objective - Vital Signs/Intake and Output Vital Signs (last 24 hours): Temp Pulse Resp BP Pulse Ox 97.4 F L 66 20 136/84 96 07/24/17 15:00 07/24/17 15:00 07/24/17 15:00 07/24/17 15:00 07/24/17 15:00 Intake and Output: 07/24/17 07/24/17 06:59 18:59 Intake Total 450 Balance 450 - Medications Medications: Current Medications Enoxaparin Sodium (Lovenox) 40 mg SC DAILY [facility] Last Admin: 07/24/17 10:17 Dose: 40 mg Famotidine (Pepcid) 20 mg PO DAILY [facility] Last Admin: 07/24/17 10:17 Dose: 20 mg Ketorolac Tromethamine (Toradol) 15 mg IVP Q6 PRN PRN Reason: Pain, moderate (4-7) Ketorolac Tromethamine (Toradol) 30 mg IVP Q6H PRN PRN Reason: Pain, severe (8-10) Last Admin: 07/24/17 16:58 Dose: 30 mg Prednisone (Prednisone Tab) 40 mg PO DAILY [facility] Last Admin: 07/24/17 10:17 Dose: 40 mg Vitamin A (Vitamin A & D Oint Ud Foilpak) 0.5 ea TOP Q4 [facility] Last Admin: 07/24/17 17:02 Dose: 0.5 ea - Labs Labs: 07/24/17 06:55 07/24/17 06:55 PT 12.6 SECONDS (9.7-12.2) H 07/18/17 17:32 INR 1.1 07/18/17 17:32 APTT 33 SECONDS (21-34) 07/18/17 17:32 - Constitutional Appears: Well, No Acute Distress - Head Exam Head Exam: ATRAUMATIC, NORMAL INSPECTION - Eye Exam Eye Exam: EOMI, Normal appearance - ENT Exam ENT Exam: Mucous Membranes Moist - Respiratory Exam Respiratory Exam: Clear to Ausculation Bilateral, NORMAL BREATHING PATTERN - Cardiovascular Exam Cardiovascular Exam: REGULAR RHYTHM, +S1, +S2 - GI/Abdominal Exam GI & Abdominal Exam: Soft, Tenderness, Normal Bowel Sounds - Extremities Exam Extremities Exam: Normal Inspection. absent: Calf Tenderness, Pedal Edema - Neurological Exam Neurological Exam: Alert, Awake, Oriented x3 - Psychiatric Exam Psychiatric exam: Depressed, Flat Affect - Skin Skin Exam: Normal Color Assessment and Plan (1) Chronic pain Assessment & Plan: Secondary to severe chronic Rheumatoid Arthritis-related joint pain in shoulders and knees Imagin. Shoulder X-ray: Moderate degenerative joint disease bilateral shoulders without fracture or dislocation 2. Knee X-ray: Late stae bilateral osteoarthritis. Tricompartmental Management/Medication: * Toradol 15mg IV Q6H PRN * Toradol 30mg IV Q6H PRN * PT/OT Status: Acute (2) Degenerative joint disease Assessment & Plan: Bilateral knee and shoulder Orthopedics consult, Dr. Esctoo * As per recommendation: agreessive PT /OT for ROM and strengthening, wheelchair transfers recommend rehab placement, recommend rheumatology consult, recommend pain management consult Imagin. Shoulder X-ray: Moderate degenerative joint disease bilateral shoulders without fracture or dislocation 2. Knee X-ray: Late stae bilateral osteoarthritis. Tricompartmental Management: * Aggressive PT/OT * awaiting [facility] placement Status: Acute (3) History of brain cancer Assessment & Plan: Remission Status: Acute (4) Rash Assessment & Plan: Resolving trunk, right upper shoulder and bilateral UE AND LE * Vitamin A & D ointment Status: Acute (5) Prophylactic measure Assessment & Plan: DVT: SCDs, Lovenox 40mg SC daily GI: Pepcid 20mg daily PT and OT Disposition: Working with case management coordinator and aids social worker on subacute rehab placement All plans and management discussed with Dr. porter Status: Acute
[2017-07-25] MEDS: Vitamins A & D Oint UD Foilpak TOP SCH ×4 (00:21→13:25)
[2017-07-25 07:49] LABS: BASO % 0.6 % (0.0-2.0); EOS % 0.1 % (0.0-4.0); LYMPH # 3.2 K/uL (1.0-4.3); MEAN CELL VOLUME 82.1 fL (81.0-99.0); MEAN CORPUSCULAR HEMOGLOBIN 27.2 pg (27.0-31.0); MEAN CORPUSCULAR HGB CONC 33.1 g/dL (33.0-37.0); MEAN PLATELET VOLUME 7.8 fL (7.2-11.7); MONO # 0.5 K/uL (0.0-0.8); MONO % 6.3 % (0.0-10.0); NRBC % 0.1 % (0.0-2.0); RED CELL DISTRIBUTION WIDTH 15.9 % (11.5-14.5); WHITE BLOOD COUNT 8.7 K/uL (4.8-10.8)
[2017-07-25 08:16] LABS: ALKALINE PHOSPHATASE 55 U/L (38-126); ALT/SGPT 24 U/L (9-52); AST/SGOT 12 U/L (14-36); BILIRUBIN,TOTAL 0.3 mg/dL (0.2-1.3); BLOOD UREA NITROGEN 24 mg/dL (7-17); CALCIUM 8.1 mg/dl (8.6-10.4); CARBON DIOXIDE 27 mmol/L (22-30); CHLORIDE 105 mmol/L (98-107); GFR AFRICAN-AMERICAN > 60; GLUCOSE,RANDOM 97 mg/dL (65-105); MAGNESIUM 2.1 mg/dL (1.6-2.3); PHOSPHOROUS 3.4 mg/dL (2.5-4.5); POTASSIUM 3.8 mmol/L (3.6-5.2); SODIUM 139 mmol/L (132-148); TOTAL PROTEIN 5.6 g/dL (6.3-8.3)
[2017-07-25 08:20] LABS: ALB/GLOB RATIO 1.4 (1.0-2.1)
[2017-07-25] MEDS: Enoxaparin 40 mg Syringe SC SCH (09:52)
[2017-07-25 11:46] LABS: CCP IGG 99 Units (<20)
[2017-07-25 17:21] VITALS: BP 122/78; PULSE 92; TEMP 98.1; O2SAT 95
--- NOTE | 2017-07-25 17:31 | CP.PCM.DIS ---
Provider - Provider Date of Admission: 07/18/17 18:38 Attending physician: Panda Diaz Jr, MD Time Spent in preparation of Discharge (in minutes): 35 Diagnosis - Discharge Diagnosis (1) Chronic pain Status: Acute (2) Degenerative joint disease Status: Acute (3) History of brain cancer Status: Acute (4) Rash Status: Acute (5) Prophylactic measure Status: Acute Hospital Course - Lab Results Lab Results: Most Recent Lab Values WBC 8.7 K/uL (4.8-10.8) 07/25/17 07:10 RBC 4.63 Mil/uL (3.80-5.20) 07/25/17 07:10 Hgb 12.6 g/dL (11.0-16.0) 07/25/17 07:10 Hct 38.0 % (34.0-47.0) 07/25/17 07:10 MCV 82.1 fL (81.0-99.0) 07/25/17 07:10 MCH 27.2 pg (27.0-31.0) 07/25/17 07:10 MCHC 33.1 g/dL (33.0-37.0) 07/25/17 07:10 RDW 15.9 % (11.5-14.5) H 07/25/17 07:10 Plt Count 287 K/uL (130-400) 07/25/17 07:10 MPV 7.8 fL (7.2-11.7) 07/25/17 07:10 Neut % (Auto) 56.0 % (50.0-75.0) 07/25/17 07:10 Lymph % (Auto) 37.0 % (20.0-40.0) 07/25/17 07:10 Ocean % (Auto) 6.3 % (0.0-10.0) 07/25/17 07:10 Eos % (Auto) 0.1 % (0.0-4.0) 07/25/17 07:10 Baso % (Auto) 0.6 % (0.0-2.0) 07/25/17 07:10 Neut # 4.9 K/uL (1.8-7.0) 07/25/17 07:10 Lymph # 3.2 K/uL (1.0-4.3) 07/25/17 07:10 Ocean # 0.5 K/uL (0.0-0.8) 07/25/17 07:10 Eos # 0.0 K/uL (0.0-0.7) 07/25/17 07:10 Baso # 0.0 K/uL (0.0-0.2) 07/25/17 07:10 ESR 26 mm/hr (0-20) H 07/22/17 08:09 PT 12.6 SECONDS (9.7-12.2) H 07/18/17 17:32 INR 1.1 07/18/17 17:32 APTT 33 SECONDS (21-34) 07/18/17 17:32 Sodium 139 mmol/L (132-148) 07/25/17 07:10 Potassium 3.8 mmol/L (3.6-5.2) 07/25/17 07:10 Chloride 105 mmol/L (98-107) 07/25/17 07:10 Carbon Dioxide 27 mmol/L (22-30) 07/25/17 07:10 Anion Gap 11 (10-20) 07/25/17 07:10 BUN 24 mg/dL (7-17) H 07/25/17 07:10 Creatinine 0.5 mg/dL (0.7-1.2) L 07/25/17 07:10 Est GFR ( Amer) > 60 07/25/17 07:10 Est GFR (Non-Af Amer) > 60 07/25/17 07:10 Random Glucose 97 mg/dL (65-105) 07/25/17 07:10 Calcium 8.1 mg/dl (8.6-10.4) L 07/25/17 07:10 Phosphorus 3.4 mg/dL (2.5-4.5) 07/25/17 07:10 Magnesium 2.1 mg/dL (1.6-2.3) 07/25/17 07:10 Total Bilirubin 0.3 mg/dL (0.2-1.3) 07/25/17 07:10 AST 12 U/L (14-36) L 07/25/17 07:10 ALT 24 U/L (9-52) 07/25/17 07:10 Alkaline Phosphatase 55 U/L (38-126) 07/25/17 07:10 C-React Prot High Sens 10.74 mg/L (1.00-3.00) H 07/22/17 07:00 NT-Pro-B Natriuret Pep 129 pg/mL (0-450) 07/18/17 17:32 Total Protein 5.6 g/dL (6.3-8.3) L 07/25/17 07:10 Albumin 3.3 g/dL (3.5-5.0) L 07/25/17 07:10 Globulin 2.4 gm/dL (2.2-3.9) 07/25/17 07:10 Albumin/Globulin Ratio 1.4 (1.0-2.1) 07/25/17 07:10 Urine Color Yellow (YELLOW) 07/18/17 16:55 Urine Clarity Clear (Clear) 07/18/17 16:55 Urine pH 5.0 (5.0-8.0) 07/18/17 16:55 Ur Specific [place] 1.029 (1.003-1.030) 07/18/17 16:55 Urine Protein Negative mg/dL (NEGATIVE) 07/18/17 16:55 Urine Glucose (UA) Normal mg/dL (Normal) 07/18/17 16:55 Urine Ketones Negative mg/dL (NEGATIVE) 07/18/17 16:55 Urine Blood Negative (NEGATIVE) 07/18/17 16:55 Urine Nitrate Negative (NEGATIVE) 07/18/17 16:55 Urine Bilirubin Negative (NEGATIVE) 07/18/17 16:55 Urine Urobilinogen Normal mg/dL (0.2-1.0) 07/18/17 16:55 Ur Leukocyte Esterase Neg [place]/uL (Negative) 07/18/17 16:55 Urine WBC (Auto) 3 /hpf (0-5) 07/18/17 16:55 Urine RBC (Auto) 1 /hpf (0-3) 07/18/17 16:55 Ur Squamous Epith Cells 3 /hpf (0-5) 07/18/17 16:55 Ur Transition Epith Cell < 1 /hpf (0-3) 07/18/17 16:55 Urine Bacteria Rare (<OCC) 07/18/17 16:55 Hyaline Casts 0-2 /lpf (0-2) 07/18/17 16:55 Urine HCG, Qual Negative (NEGATIVE) 07/18/17 16:55 Urine Opiates Screen Positive (NEGATIVE) H 07/18/17 18:35 Urine Methadone Screen Negative (NEGATIVE) 07/18/17 18:35 Ur Barbiturates Screen Negative (NEGATIVE) 07/18/17 18:35 Ur Phencyclidine Scrn Negative (NEGATIVE) 07/18/17 18:35 Ur Amphetamines Screen Negative (NEGATIVE) 07/18/17 18:35 U Benzodiazepines Scrn Negative (NEGATIVE) 07/18/17 18:35 U Oth Cocaine Metabols Negative (NEGATIVE) 07/18/17 18:35 U Cannabinoids Screen Positive (NEGATIVE) H 07/18/17 18:35 Cycl Citrul Peptide IgG 99 Units (<20) H 07/24/17 07:49 - Hospital Course Hospital Course: HPI ( As per admission): 51 year old female presented to ED with complaint of worsening chronic Rheumatoid Arthritis-related joint pain in shoulders and knees. Patient is bed- bound and has not been able to stand or walk for the past two months due to the pain, which she rates as a 10/10. The pain is constant and is localized to the joints, with no radiation. Patient used to see a pain management doctor until he no longer accepted her insurance about 2 years ago. This doctor would prescribe her Percocet and give her Cortisone shots, which she says helped her pain. The Ibuprofen she takes now for the pain is not as effective. Patient also complains of a rash for about 1 month present throughout her body, which she says is very itchy. No one else in the family has the rash. Patient complains of weakness, headache, constipation, knee swelling, and back pain. Patient denies fever, chills, chest pain, palpations, nausea, vomiting, diarrhea , hematochezia, leg pain, weight gain. Hospital Course: Patient was admitted with the diagnosis of worsening chronic Rheumatoid Arthritis-related joint pain in shoulders and knees and Immobilization. Orthopedics, Dr. Escoto was consulted, who recommended agreessive PT /OT for ROM and strengthening, wheelchair transfers, rehab placement, outpatient rheumatology and pain management. Patient's pain was managed over the course of admission and patient worked closely with physical therapy. talent program manager and social media manager worked on rehabilitation placement, however, patient was denied for rehabilitation placement. Therefore, patient was discharged home with home care order such as physical therapy and visiting nurse. Patient was discharged upon clearance by medical team and appropriate instructions. Pertinent Imaging: Shoulder X-ray: Moderate degenerative joint disease bilateral shoulders without fracture or dislocation Knee X-ray: Late stae bilateral osteoarthritis. Tricompartmental This is a brief summary of event. For complete course, please refer to the medical records Discharge Exam - Head Exam Head Exam: ATRAUMATIC, NORMAL INSPECTION - Eye Exam Eye Exam: EOMI - ENT Exam ENT Exam: Mucous Membranes Moist - Respiratory Exam Respiratory Exam: Clear to PA & Lateral, NORMAL BREATHING PATTERN - Cardiovascular Exam Cardiovascular Exam: REGULAR RHYTHM, +S1, +S2 - GI/Abdominal Exam GI & Abdominal Exam: Normal Bowel Sounds, Soft - Extremities Exam Extremities exam: normal inspection - Neurological Exam Neurological exam: Oriented x3 - Psychiatric Exam Psychiatric exam: Normal Affect - Skin Skin Exam: Normal Color Discharge Plan - Discharge Medications Prescriptions: Vitamin A & D [Vitamin A & D Oint UD Foilpak] 0.5 ea TOP Q4 30 Days #2 fp - Follow Up Plan Condition: GOOD Disposition: HOME/ ROUTINE Instructions: Ibuprofen (By mouth), Methylprednisolone (By mouth), Rheumatoid Arthritis (DC), Regular Diet (DC), Obesity (DC) Additional Instructions: Please discharge patient home as per Dr. Diaz with home physical therapy and visiting nurse as patient was denied at [facility] Please continue the following medications: 1. Medrol Dosepak 2. Vitamin A Please follow up with your pain management Please follow up with your PMD Please follow up Dr. Escoto, orthopedics. Please continue to work closely with physical therapy Please return to the ED or hospital if symptoms worsen Referrals: Carlos Escoto III, MD [Staff Provider] - Panda Diaz Jr., MD [Medical Doctor] -
== END 2017-07-25 18:48 | disposition home or self-care (01) | DRG 241 ==
LOC: C.ER 14:51 → C.9E 18:38 → C.3T 07-19 15:40
PROVIDERS: ADMIT Internal Medicine; ATTEND Internal Medicine
DX: M06.9 Rheumatoid arthritis, unspecified (principal); E66.01 Morbid (severe) obesity due to excess calories; B36.9 Superficial mycosis, unspecified; F17.210 Nicotine dependence, cigarettes, uncomplicated; G89.29 Other chronic pain; K59.00 Constipation, unspecified; M19.011 Primary osteoarthritis, right shoulder; Z74.01 Bed confinement status; Z85.841 Personal history of malignant neoplasm of brain; M19.012 Primary osteoarthritis, left shoulder; M17.0 Bilateral primary osteoarthritis of knee; Z68.39 Body mass index [BMI] 39.0-39.9, adult